=== PATIENT | female | born 1955 | race Caucasian/White ===

== ENCOUNTER → 2017-07-28 | Outpatient (CLI) | payer OTHER ==
[~2017-07-28] MED LIST: Z.0.NO CURRENT MEDS
--- NOTE | 2017-07-28 15:45 | RADRPT ---
EXAM DATE/TIME: 07/28/2017 12:47 [place] COMPARISON: No previous studies available for comparison. INDICATIONS : Tremors and unsteady gait. DOSE: 5.4 mCi Ioflupane Iodine-123 in 2.5 ml total volume MEDICATION(S): 130 mg Potasium Iodine PO one hour prior to injection SPECT IMAGIN.5 hours. IMAGNG: SPECT/CT imaging with fusion was performed. RADIATION DOSE: 30.27 CTDIvol (mGy) MEDICAL HISTORY : Hypertension. SURGICAL HISTORY : Cholecystectomy. ENCOUNTER: Initial ACUITY: 7 - 11 months PAIN SCALE: 0/10 LOCATION: Head. TECHNIQUE: SPECT imaging of the brain was performed in sagittal, axial and coronal planes. Attenuation correctio n was performed with computed tomography and both the attenuation correction and non-attenuation vlad ected data sets were reviewed. FINDINGS: There is normal biodistribution of radionuclide with symmetric crescent-shaped areas of activity are in the striatum which appears distinct relative to the surrounding brain tissue. CONCLUSION: Negative exam. Karl Cardenas MD on July 28, 2017 at 15:42 Board Certified Radiologist. This report was verified electronically.
== END ==
LOC: HRAD 07:33
PROVIDERS: ATTEND Specialist
DX: R25.1 Tremor, unspecified (principal); I10 Essential (primary) hypertension
CPT/HCPCS: 78607; A9584